=== PATIENT | male | born 1945 | race Caucasian/White ===

== ENCOUNTER → 2016-10-22 | Outpatient (CLI) | payer BC, MEDICARE ==
[~2016-10-22] MED LIST: ALDACTONE25 MG PO; LIPITOR10 MG PO; LOTREL 5-10 MG1 EACH PO; MULTIVITAMINS1 EAC1 PO; NORCO 5-325 MG1 TAB PO; PROAIR HFA8.5 GM INH; PULMICORT FLE180 MCG INH
== END | disposition disaster alternative care site (69) ==
LOC: GRAD 12:50
DX: R10.9 Unspecified abdominal pain (principal); N28.1 Cyst of kidney, acquired; Z87.442 Personal history of urinary calculi